=== PATIENT | female | born 1955 | race Caucasian/White ===

== ENCOUNTER 2018-08-12 23:49 | Inpatient (IN) | payer OTHER ==
[~2018-08-12] VITALS: Ht 154.9 cm; Wt 68.5 kg
[2018-08-13] VITALS: Ht 154.9 cm; Wt 68.5 kg
[2018-08-13 00:36] LABS: CALCIUM 8.3 mg/dL (8.5-10.1); CARBON DIOXIDE 16.1 mmol/L (21-32); CREATININE SERUM 1.5 mg/dL (0.6-1.0); POTASSIUM SERUM 4.7 mmol/L (3.5-5.1)
[2018-08-13 00:39] LABS: BILIRUBIN TOTAL 0.5 mg/dL (0.20-1.00); TOTAL PROTEIN, SERUM 7.2 g/dL (6.4-8.2)
[2018-08-13 00:40] LABS: PLATELET COUNT 189 x10^3mcL (130-400); RED CELL DISTRIBUTION WIDTH 13.5 % (11.5-14.5)
[2018-08-13 00:41] LABS: BASOPHIL % 0 % (0-2)
[2018-08-13 00:57] LABS: ALBUMIN 2.7 g/dL (3.4-5.0)
[2018-08-13] MEDS ORDERED: METFORMIN HYDR500 M1 (03:22)
[2018-08-13] MEDS ORDERED: NOVOLOG100 U/ML (03:22)
[2018-08-13] MEDS ORDERED: GLIPIZIDE ER2.5 M1 (03:23)
[2018-08-13 05:04] LABS: CALCIUM 7.5 mg/dL (8.5-10.1); CARBON DIOXIDE 15.1 mmol/L (21-32); CREATININE SERUM 1.3 mg/dL (0.6-1.0); MAGNESIUM 1.3 mg/dL (1.8-2.4); PHOSPHOROUS 3.5 mg/dL (2.5-4.9); POTASSIUM SERUM 4.3 mmol/L (3.5-5.1)
[2018-08-13 05:12] VITALS: BP 105/50
[2018-08-13 07:14] VITALS: BP 97/58
[2018-08-13 08:16] LABS: CALCIUM 7.3 mg/dL (8.5-10.1); CREATININE SERUM 1.5 mg/dL (0.6-1.0); MAGNESIUM 1.1 mg/dL (1.8-2.4); PHOSPHOROUS 3.7 mg/dL (2.5-4.9); POTASSIUM SERUM 4.4 mmol/L (3.5-5.1)
[2018-08-13 11:09] VITALS: BP 111/67
[2018-08-13 12:26] LABS: CALCIUM 7.8 mg/dL (8.5-10.1); CREATININE SERUM 1.3 mg/dL (0.6-1.0); MAGNESIUM 2.4 mg/dL (1.8-2.4); PHOSPHOROUS 3.1 mg/dL (2.5-4.9)
[2018-08-13 15:13] VITALS: BP 135/86
[2018-08-13 17:03] VITALS: BP 145/79
[2018-08-13 21:00] VITALS: BP 136/76
[2018-08-14 05:16] LABS: BASOPHIL % 0.4 % (0-2); PLATELET COUNT 133 x10^3mcL (130-400); RED CELL DISTRIBUTION WIDTH 14.3 % (11.5-14.5)
[2018-08-14 05:25] LABS: CALCIUM 7.7 mg/dL (8.5-10.1); POTASSIUM SERUM 3.9 mmol/L (3.5-5.1)
[2018-08-14 05:27] VITALS: BP 136/69
[2018-08-14 09:09] VITALS: BP 164/85
[2018-08-14 10:45] LABS: UA SPECIFIC GRAVITY 1.025 (1.005-1.035); microscopic required? YES; urine erythrocyte 1+ (NEGATIVE)
[2018-08-14 13:46] VITALS: BP 151/98
[2018-08-14 14:38] VITALS: BP 151/98
== END 2018-08-14 15:12 | disposition home or self-care (01) | DRG 420 ==
LOC: ED 23:49 → DU 08-13 02:24 → IC 08-13 02:24 → DU 08-13 15:28
PROVIDERS: Emergency Medicine; Family Medicine
DX: E11.00 Type 2 diabetes mellitus with hyperosmolarity without nonketotic hyperglycemic-hyperosmolar coma (NKHHC) (principal); N17.0 Acute kidney failure with tubular necrosis; E43 Unspecified severe protein-calorie malnutrition; E87.2 Acidosis; D68.69 Other thrombophilia; E11.22 Type 2 diabetes mellitus with diabetic chronic kidney disease; E83.42 Hypomagnesemia; E11.65 Type 2 diabetes mellitus with hyperglycemia; I13.10 Hypertensive heart and chronic kidney disease without heart failure, with stage 1 through stage 4 chronic kidney disease, or unspecified chronic kidney disease; N18.3 Chronic kidney disease, stage 3 (moderate); I25.10 Atherosclerotic heart disease of native coronary artery without angina pectoris; Z79.84 Long term (current) use of oral hypoglycemic drugs; E87.1 Hypo-osmolality and hyponatremia; Z68.25 Body mass index [BMI] 25.0-25.9, adult; Z91.14 Patient's other noncompliance with medication regimen
CPT/HCPCS: 36600; 82962; A4628; J1644; J1815; J2270; J2405; J3475; J7030; Q0092